=== PATIENT | female | born 1995 | race American Indian/Alaskan Native ===

== ENCOUNTER 2016-06-10 20:16 | Outpatient (CLI) | payer MEDICAID ==
[2016-06-10 20:40] VITALS: BP 102/60
[2016-06-10 20:50] LABS: Urine Drugs of Abuse Note Disclamer
[2016-06-10] MEDS ORDERED: LACTATED RINGERS 1,000 ML IV ONE (21:00)
[2016-06-10 21:06] LABS: Bacteria,Urine 2+ /HPF (Negative); Bilirubin,Urine NEG (Negative); Blood,Urine NEG (Negative); Ketones,Urine NEG (Negative); Leukocyte Esterase,Urine TR (Negative); Nitrite,Urine NEG (Negative); Protein,Urine <15 mg/dL mg/dL (Negative); RBC,Urine < 1.0 /HPF (0.0-6.0); Urobilinogen,Urine < 2.0 mg/dL (<2.0)
[2016-06-10] MEDS ORDERED: BRETHINE SUB-Q ONE (22:00)
--- NOTE | 2016-06-11 12:40 | Ultrasound Report ---
Gestation: Single Position: Cephalic Amniotic Fluid: GELY = 11.9 cm Placenta: Posterior Placental Grade: 1 Heart Rate: 154 BPM Cervical length: 3.5 cm (Normal > 3 cm) anatomic survey not performed. BPD: 6.9 cm = 27 w 4 d HC: 25.5 cm = 27 w 4d AC: 22.9 cm = 27 w 1 d FL: 5.1 cm = 27 w 3 d HC/AC Ratio: 1.1 Cephalic Index: Estimated Weight: 1077 grams. US Gest. Age = 27 w 3 d EDC: 09/06/16
== END 2016-06-10 22:49 | disposition home or self-care (01) ==
LOC: TRG 20:16
PROVIDERS: ATTEND Obstetrics & Gynecology
DX: O26.893 Other specified pregnancy related conditions, third trimester (principal); R10.9 Unspecified abdominal pain; Z3A.30 30 weeks gestation of pregnancy
CPT/HCPCS: 59025; 76816; 80307; 81001; 96360; 96372; J3105; J7120

== ENCOUNTER 2016-09-01 05:32 | Inpatient (IN) | payer MEDICAID ==
[2016-09-01] MEDS ORDERED: ePHEDrine SULFATE IV PRN ×2 (06:04→08:30)
[2016-09-01] MEDS ORDERED: NARCAN 0.4 MG/1 ML IV PRN (06:04)
[2016-09-01] MEDS ORDERED: BRETHINE IVP PRN (06:04)
[2016-09-01] MEDS ORDERED: BRETHINE SUB-Q PRN (06:04)
[2016-09-01] MEDS ORDERED: ZOFRAN IV PRN ×2 (06:04→17:52)
[2016-09-01] MEDS ORDERED: STADOL IV PRN (06:04)
[2016-09-01] MEDS ORDERED: MINERAL OIL PO PRN (06:04)
[2016-09-01] MEDS ORDERED: XYLOCAINE 2% INFILTRATI ONE ×2 (06:04→15:27)
[2016-09-01] MEDS ORDERED: SUBLIMAZE IV PRN (06:04)
[2016-09-01] MEDS ORDERED: POLYCILLIN/NS 2 GM/100 ML 2 GM/100 ML BAG IV ONE (06:04)
[2016-09-01 06:38] LABS: Hematocrit 27.5 % (30.3-42.9); Mean Corpuscular HGB Conc 33 % (30-34); Mean Corpuscular Hemoglobin 28 pg (28-32); Mean Corpuscular Volume 85 fl (79-97); Platelet Count 152 K/mm3 (140-440); Red Blood Count 3.22 M/mm3 (3.65-5.03); Red Cell Distribution Width 15.2 % (13.2-15.2); White Blood Count 7.2 K/mm3 (4.5-11.0)
[2016-09-01] MEDS: LACTATED RINGERS 1,000 ML IV SCH ×4 (06:50→11:01)
[2016-09-01] MEDS ORDERED: PITOCin/NS 20 UNIT/1000ML DRIP 20 UNITS/1,000 ML BAG IV SCH ×2 (07:00→17:52)
[2016-09-01] MEDS ORDERED: fentaNYL-BUPIV 2 MCG/ML-0.125% 200 MCG/100 ML BAG EPIDURAL ONE (07:41)
[2016-09-01] MEDS ORDERED: ePHEDrine SULFATE ONE (07:42)
[2016-09-01] MEDS: PITOCin/NS 30 UNIT/500ML 30 UNITS/500 ML BAG IV SCH ×2 (08:15→09:44)
--- NOTE | 2016-09-01 08:19 | Anesthesia Consultation ---
Anesthesia Consult and Med Hx Date of service: 09/01/16 - Airway Anesthetic Teeth Evaluation: Good ROM Head & Neck: Adequate Mental/Hyoid Distance: Adequate Mallampati Class: Class II Intubation Access Assessment: Probably Good - Pre-Operative Health Status ASA Pre-Surgery Classification: ASA2 Proposed Anesthetic Plan: Epidural, Spinal - Pulmonary Hx Asthma: No COPD: No Hx Pneumonia: No - Cardiovascular System Hx Hypertension: No - Central Nervous System Hx Seizures: No Hx Psychiatric Problems: No - Endocrine Hx Renal Disease: No Hx End Stage Renal Disease: No Hx Hypothyroidism: No Hx Hyperthyroidism: No - Hematic Hx Anemia: Yes Hx Sickle Cell Disease: No - Other Systems Hx Alcohol Use: No
[2016-09-01] MEDS ORDERED: NARCAN 2 MG/2 ML IV PRN (08:30)
[2016-09-01] MEDS ORDERED: fentaNYL-BUPIV 2 MCG/ML-0.125% 200 MCG/100 ML BAG EPIDURAL SCH (08:30)
[2016-09-01] MEDS ORDERED: XYLOCAINE MPF 2% ONE (08:41)
--- NOTE | 2016-09-01 08:53 | History and Physical Report ---
History of Present Illness Date of examination: 09/01/16 Date of admission: 09/01/16 06:13 Chief complaint: My water broke History of present illness: Pt is a 21 year old -[place] female primigravida ROBB 09/06/16 at 39w2d who presents with leakage of fluid since 4 am this morning. She reports rare contractions, and denies vaginal bleeding. She has had limited care at [facility] since 29 wks complicated by late entry to care, insufficient care, anemia on iron supplementation, and genital herpes without lesion or prodrome. She is GBS negative. 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 Family/Genetic History: none Social history: no significant social history - Obstetrical History Expected Date of Delivery: 09/06/16 Actual Gestation: 39 Week(s) 2 Day(s) : 1 Medications and Allergies Allergies Allergy/AdvReac Type Severity Reaction Status Date / Time No Known Allergies Allergy Verified 06/10/16 20:24 Home Medications Medication Instructions Recorded Confirmed Last Taken Type Ferrous Sulfate [Feosol] 325 mg PO QDAY 09/01/16 09/01/16 08/31/16 History Vit-Fe Fumar-FA [ 1 tab PO QDAY 09/01/16 09/01/16 08/31/16 History Vitamin] Active Meds: Active Medications Butorphanol Tartrate (Stadol) 2 mg IV Q2H PRN PRN Reason: Pain , Severe (7-10) Last Admin: 09/01/16 06:51 Dose: 2 mg Ephedrine Sulfate (Ephedrine Sulfate) 10 mg IV Q2M PRN PRN Reason: Hypotension Stop: 09/01/16 14:00 Fentanyl (Sublimaze) 100 mcg IV Q2H PRN PRN Reason: Labor Pain Lactated Ringer's (Lactated Ringers) 1,000 mls @ 125 mls/hr IV DIRECT ABRAHAM Last Admin: 09/01/16 07:49 Dose: 125 mls/hr Oxytocin/Sodium Chloride (Pitocin/Ns 20 Unit/1000ml Drip) 20 units in 1,000 mls @ 125 mls/hr IV DIRECT ABRAHAM Oxytocin/Sodium Chloride (Pitocin/Ns 30 Unit/500ml) 30 units in 500 mls @ 4 mls /hr IV TITR ABRAHAM PRN Reason: Protocol Last Admin: 09/01/16 08:15 Dose: 4 ml/hr, 4 mls/hr Fentanyl/Bupivacaine/Sodium Chlor (Fentanyl-Bupiv 2 Mcg/Ml-0.125%) 200 mcg in 100 mls @ 12 mls/hr EPIDURAL TITR ABRAHAM PRN Reason: Protocol Last Admin: 09/01/16 08:30 Dose: 12 mls/hr Mineral Oil (Mineral Oil) 30 ml PO QHS PRN PRN Reason: Constipation Naloxone HCl (Narcan 0.4 Mg/1 Ml) 0.1 mg IV Q2MIN PRN PRN Reason: Res Rate </= 8 or 02 SAT < 92% Naloxone HCl (Narcan 2 Mg/2 Ml) 0.2 mg IV Q5M PRN PRN Reason: Respiratory sedation Stop: 09/01/16 12:30 Ondansetron HCl (Zofran) 4 mg IV Q8H PRN PRN Reason: Nausea And Vomiting Review of Systems All systems: negative - Vital Signs Vital signs: Vital Signs Pulse BP Pulse Ox 93 H 122/74 99 09/01/16 05:39 09/01/16 05:39 09/01/16 05:39 Temp Pulse Resp BP Pulse Ox 97.7 F 73 14 107/74 100 09/01/16 05:42 09/01/16 08:45 09/01/16 06:51 09/01/16 08:43 09/01/16 08:45 - Physical Exam Breasts: Positive: deferred Cardiovascular: Regular rate Lungs: Positive: Clear to auscultation Abdomen: Positive: soft (gravid ) Genitourinary (Female): Positive: normal external genitalia Uterus: Positive: enlarged (gravid ) Extremities: Positive: normal - Obstetrical FHR: category 2 Uterine Contraction Monitor Mode: External (3) Cervical Dilatation: 3 Cervical Effacement Percentage: 90 station: -3 Uterine Contraction Pattern: Regular Uterine Tone Measurement Phase: Resting Uterine Contraction Intensity: Moderate Results Result Diagrams: 09/01/16 06:10 Abnormal lab results 09/01/16 Range/Units 06:10 RBC 3.22 L (3.65-5.03) M/mm3 Hgb 9.0 L (10.1-14.3) gm/dl Hct 27.5 L (30.3-42.9) % All other labs normal. Assessment and Plan A: IUP at 39w2d PROM Genital herpes- no lesion or prodrome GBS negative Insufficient care P: Admit to labor and delivery. Pitocin augmentation. Closely monitor maternal and status.
[2016-09-01] MEDS ORDERED: POLYCILLIN/NS 1 GM/50 ML 1 GM/50 ML BAG IV SCH (10:06)
--- NOTE | 2016-09-01 13:27 | Event Note ---
Date: 09/01/16 Pt complaining of increased vaginal pressure. Category II tracing. Cervix / . Continue routine intrapartum care.
--- NOTE | 2016-09-01 15:57 | Procedure Note ---
OB Delivery Note - Delivery Date of Delivery: 09/01/16 Surgeon: JESSICA CROUCH Estimated blood loss: other (400 mL) - Vaginal Delivery presentation: vertex Delivery position: OA Intrapartum events: meconium, decreased FHT variability Delivery induction: none Delivery augmentation: pitocin Delivery monitor: external FHT, external uterine Route of delivery: Delivery placenta: spontaneous Delivery cord: 3 umbilical vessels Episiotomy: none Delivery laceration: 1st degree, other (bilateral periurethral lacerations ) Delivery repair: vicryl Anesthesia: local, epidural Delivery comments: Pt progressed to complete/complete/+3 and pushed to deliver a viable female over intact perineum via under epidural anesthesia. Head delivered in PEACE position, followed by shoulders and body. placed on maternal abdomen and bulb suctioned. Cord clamped and cut and handed to RN in attendance. Placenta delivered spontaneously (3VC, intact). Vagina and perineum explored. First degree perineal laceration repaired with 2-0 Vicryl in a figure- of-eight fashion. Bilateral periurethrals noted. Right periurethral laceration hemostatic without repair. Left periurethral laceration is repaired with 3-0 Vicryl in a running locked fashion. EBL 400 mL. - Infant A at 1 minute: 8 at 5 minutes: 9 Infant Gender: Female (3928g (8 lb 11 oz))
[2016-09-01] MEDS ORDERED: SODIUM CHLORIDE FLUSH SYRINGE 10 ML IV NR (17:52)
[2016-09-01] MEDS ORDERED: PHENERGAN PO PRN (17:52)
[2016-09-01] MEDS ORDERED: PHENERGAN PR PRN (17:52)
[2016-09-01] MEDS ORDERED: NORCO 5/325 PO PRN (17:52)
[2016-09-01] MEDS ORDERED: TUCKS PAD TP PRN (17:52)
[2016-09-01] MEDS ORDERED: DULCOLAX PR PRN (17:52)
[2016-09-01] MEDS ORDERED: MILK OF MAGNESIA PO PRN (17:52)
[2016-09-01] MEDS ORDERED: BENADRYL PO PRN (17:52)
[2016-09-01] MEDS ORDERED: TYLENOL PO PRN (17:52)
[2016-09-01] MEDS ORDERED: LANSINOH TP PRN (17:52)
[2016-09-01] MEDS: MOTRIN PO SCH (19:51)
[2016-09-01] MEDS: FEOSOL PO SCH (23:56)
[2016-09-02] MEDS: MOTRIN PO SCH ×3 (01:55→18:31)
[2016-09-02 06:38] LABS: Hematocrit 24.7 % (30.3-42.9); Hemoglobin 8.3 gm/dl (10.1-14.3)
--- NOTE | 2016-09-02 08:06 | Progress Note ---
Assessment and Plan A: PPD#1 s/p at ter; Asymptomatic anemia P: Routine care. Anticipate discharge tomorrow. Subjective - Subjective Date of service: 09/02/16 Principal diagnosis: s/p at term Interval history: No overnight events. with poor suck. Eating minimally. Patient reports: appetite normal, voiding normally, pain well controlled, ambulating normally [place]alt: bottle feeding (poor suck ) Objective - Vital Signs Latest vital signs: Vital Signs Temp Pulse Pulse Resp BP BP Pulse Ox 09/02/16 00:00 98.5 F 20 103/62 09/01/16 20:00 98.8 F 97 H 20 110/64 09/01/16 18:20 98.8 F 100 H 20 102/67 09/01/16 17:05 106 H 114/74 09/01/16 16:59 90 130/67 09/01/16 16:44 106 H 122/58 09/01/16 16:30 115 H 123/69 09/01/16 15:59 120 H 127/60 09/01/16 15:56 113 H 147/67 09/01/16 15:29 110 H 119/76 09/01/16 15:15 122 H 107/71 09/01/16 14:59 117 H 119/58 09/01/16 14:45 169 H 200/74 09/01/16 14:30 114 H 98 09/01/16 14:29 99 H 115/74 09/01/16 14:25 95 H 100 09/01/16 14:20 95 H 99 09/01/16 14:15 105 H 99 09/01/16 14:14 100 H 128/83 09/01/16 14:10 105 H 99 09/01/16 14:06 112 H 94 09/01/16 14:05 103 H 97 09/01/16 14:00 101 H 97 09/01/16 13:59 105 H 119/75 09/01/16 13:57 86 09/01/16 13:55 97 H 99 09/01/16 13:50 99 H 99 09/01/16 13:45 88 122/79 100 09/01/16 13:40 124 H 100 09/01/16 13:35 103 H 99 09/01/16 13:30 116 H 98 09/01/16 13:29 130 H 134/89 09/01/16 13:25 95 H 100 17 13:20 95 H 99 17 13:15 101 H 98 09/01/16 13:14 91 H 124/78 09/01/16 13:10 107 H 98 09/01/16 13:05 98 H 97 09/01/16 13:00 93 H 98 09/01/16 12:59 106 H 118/75 09/01/16 12:55 101 H 98 09/01/16 12:50 104 H 98 09/01/16 12:45 102 H 97 09/01/16 12:44 109 H 108/67 09/01/16 12:40 104 H 98 09/01/16 12:35 101 H 96 09/01/16 12:30 100 H 98 09/01/16 12:29 95 H 117/77 09/01/16 12:25 96 H 98 09/01/16 12:20 96 H 99 09/01/16 12:15 96 H 99 09/01/16 12:13 103 H 100/68 09/01/16 12:10 97 H 98 09/01/16 12:05 98 H 98 09/01/16 12:01 93 H 118/65 09/01/16 12:00 105 H 99 09/01/16 11:55 98 H 97 09/01/16 11:50 95 H 98 09/01/16 11:45 94 H 98 09/01/16 11:43 95 H 105/64 09/01/16 11:40 92 H 99 09/01/16 11:35 94 H 98 09/01/16 11:30 93 H 99 09/01/16 11:29 85 107/66 09/01/16 11:25 95 H 99 09/01/16 11:20 95 H 97 09/01/16 11:15 97 H 104/64 99 09/01/16 11:10 92 H 99 09/01/16 11:08 93 H 91 09/01/16 11:05 86 99 09/01/16 11:00 86 108/69 99 09/01/16 10:55 94 H 99 09/01/16 10:50 97 H 97 09/01/16 10:45 84 100 09/01/16 10:43 79 107/66 06/15/17 10:40 83 98 06/15/17 10:35 98 H 98 06/15/17 10:30 85 100 06/15/17 10:29 93 H 97/55 06/15/17 10:25 87 98 06/15/17 10:20 90 99 06/15/17 10:15 89 97/52 100 06/15/17 10:10 91 H 100 06/15/17 10:05 85 100 06/15/17 10:00 90 100 15/17 09:59 103 H 88/54 0615/17 09:55 86 100 0615/17 09:50 81 100 06/15/17 09:47 73 107/59 15/17 09:45 87 100 15/17 09:43 89 94/54 15/17 09:40 82 100 0615/17 09:38 80 101/57 15/17 09:35 81 100 15/17 09:33 82 99/57 15/17 09:30 79 100 15/17 09:29 75 101/58 0615/17 09:25 90 100 15/17 09:23 83 105/64 0615/17 09:20 83 100 15/17 09:18 68 111/62 15/17 09:15 64 100 15/17 09:13 96 H 98/60 15/17 09:12 88 93 15/17 09:10 77 99 15/17 09:09 76 95/54 15/17 09:05 76 100 15/17 09:04 84 87/53 15/17 09:00 77 99 15/17 08:59 75 106/62 0615/17 08:55 78 100 0615/17 08:54 73 106/62 15/17 08:50 76 113/56 100 15/17 08:49 79 89 15/17 08:45 73 100 0615/17 08:43 74 107/74 15/17 08:40 71 100 0615/17 08:39 68 118/73 15/17 08:37 88 91 15/17 08:35 72 98 15/17 08:34 72 117/77 09/01/16 08:30 73 100 09/01/16 08:29 84 74 L 09/01/16 08:28 73 110/70 09/01/16 08:25 76 100 09/01/16 08:24 75 104/71 09/01/16 08:20 79 99 09/01/16 08:19 78 110/79 09/01/16 08:18 77 111/68 09/01/16 08:15 78 99 09/01/16 08:14 74 97/67 09/01/16 08:11 70 109/70 09/01/16 08:10 73 100 09/01/16 08:05 78 100 Intake and Output 09/01/16 09/02/16 09/02/16 22:59 06:59 14:59 Intake Total 240 480 Output Total 700 Balance -460 480 Intake: Oral 240 480 Output: Urine 700 Void 700 Other: Total, Intake Amount 240 240 Total, Output Amount 500 # Voids Void 1 Estimated Blood Loss 400 - Exam Breasts: Present: deferred Cardiovascular: Present: Regular rate Lungs: Present: Clear to auscultation Abdomen: Present: soft Uterus: Present: fundal height at umbilicus Extremities: Present: normal - Labs Labs: Abnormal lab results 09/02/16 Range/Units 06:00 Hgb 8.3 L (10.1-14.3) gm/dl Hct 24.7 L (30.3-42.9) %
--- NOTE | 2016-09-02 08:10 | Discharge Summary ---
Providers - Providers Date of Admission: 09/01/16 06:13 Date of discharge: 09/02/16 Attending physician: JESSICA CROUCH 09/01/16 17:52 Consult to Final Expense Agent [CONS] Routine Reason For Exam: assistance with , SNS Primary care physician: JESSICA CROUCH Hospitalization Reason for admission: rupture of membranes Delivery: Procedure details: Please see delivery note. Episiotomy: none Laceration: 1st degree, other (bilateral periurethrals ) Other procedures: none complications: none Discharge diagnosis: IUP at term delivered baby: female Hospital course: Pt was admitted with PROM and ultimately had a vaginal delivery which she tolerated well. Her course was uncomplicated and she met discharge criteria on PPD#2. Condition at discharge: Stable Disposition: DC-01 TO HOME OR SELFCARE - Discharge Diagnoses (1) Term of female Status: Acute (2) Anemia affecting Status: Acute Qualifiers: Trimester: unspecified trimester Qualified Code(s): O99.019 - Anemia complicating , unspecified trimester (3) Insufficient care in third trimester Status: Acute (4) Spontaneous rupture of membranes Status: Acute Plan - Discharge Medications Prescriptions: Ferrous Sulfate [Feosol 325 MG tab] 325 mg PO BID #60 tablet HYDROcodone/APAP 5-325 [[place] 5/325] 1 each PO Q6HR PRN #30 tablet PRN Reason: Pain Ibuprofen [Motrin] 800 mg PO Q8HR PRN #30 tablet PRN Reason: Pain Vit-Fe Fumar-FA [ Vitamin] 1 tab PO QDAY #30 tablet - Provider Discharge Summary Activity: routine, no sex for 6 weeks, no heavy lifting 4 weeks, no strenuous exercise Diet: routine Instructions: routine Additional instructions: [] Smoking cessation referral if applicable(refer to patient education folder for contact #) [] Refer to [facility] Booklet Call your doctor immediately for: * Fever > 100.5 * Heavy vaginal bleeding ( >1 pad per hour) * Severe persistent headache * Shortness of breath * Reddened, hot, painful area to leg or breast * Drainage or odor from incision. * Keep incision clean and dry at all times and follow doctor's instructions regarding bathing/showering - Follow up plan Follow up: BERTO MEDINA CNM [Advanced Practice Nurse] - 09/29/16 ( exam. please call for appointment. )
--- NOTE | 2016-09-02 08:41 | Progress Note ---
Subjective Date of service: 09/02/16 Principal diagnosis: s/p at term Interval history: Patient seen post delivery day 1; patient is ambulating; had some pain in back during delivery and post- delivery; satisfied with level of anesthesia during delivery. Objective - Constitutional Vitals: Vital Signs - 12hr 09/02/16 00:00 Temperature 98.5 F Respiratory 20 Rate Blood Pressure 103/62 [Left Arm] - Labs CBC & Chem 7: 09/02/16 06:00 Labs: Abnormal lab results 09/02/16 Range/Units 06:00 Hgb 8.3 L (10.1-14.3) gm/dl Hct 24.7 L (30.3-42.9) %
[2016-09-02] MEDS: FEOSOL PO SCH ×2 (12:00→22:36)
[2016-09-02] MEDS: PRENATAL VITAMIN PO SCH (12:15)
[2016-09-02] MEDS ORDERED: M-M-R II VACCINE SUB-Q ONE (16:00)
[2016-09-02] MEDS ORDERED: BOOSTRIX IM ONE (16:00)
[2016-09-03] MEDS: MOTRIN PO SCH ×2 (00:15→05:50)
[2016-09-03 09:15] VITALS: BP 111/82
[2016-09-03] MEDS: PRENATAL VITAMIN PO SCH (10:12)
[2016-09-03] MEDS: FEOSOL PO SCH (10:12)
== END 2016-09-03 16:05 | disposition home or self-care (01) | DRG 774 ==
LOC: TRG 05:32 → LD 06:13 → TRG 06:13 → OB 17:30
PROVIDERS: ADMIT Obstetrics & Gynecology; ATTEND Obstetrics & Gynecology
PROC: 10E0XZZ Delivery of Products of Conception, External Approach (ICD-10-PCS; principal; 2016-09-01)
PROC: 0HQ9XZZ Repair Perineum Skin, External Approach (ICD-10-PCS; 2016-09-01)
PROC: 00HU33Z Insertion of Infusion Device into Spinal Canal, Percutaneous Approach (ICD-10-PCS; 2016-09-01)
PROC: 3E0R3BZ Introduction of Anesthetic Agent into Spinal Canal, Percutaneous Approach (ICD-10-PCS; 2016-09-01)
DX: O77.0 Labor and delivery complicated by meconium in amniotic fluid (principal); O98.32 Other infections with a predominantly sexual mode of transmission complicating childbirth; O99.354 Diseases of the nervous system complicating childbirth; O99.02 Anemia complicating childbirth; D64.9 Anemia, unspecified; A60.00 Herpesviral infection of urogenital system, unspecified; G43.909 Migraine, unspecified, not intractable, without status migrainosus; O42.02 Full-term premature rupture of membranes, onset of labor within 24 hours of rupture; O76 Abnormality in fetal heart rate and rhythm complicating labor and delivery; O70.0 First degree perineal laceration during delivery; O09.33 Supervision of pregnancy with insufficient antenatal care, third trimester; Z3A.39 39 weeks gestation of pregnancy; Z37.0 Single live birth
CPT/HCPCS: 36415; 85014; 85018; 85027; 86850; 86900; 86901; 99211; A6250; G0463; J0595; J2590; J7120

== ENCOUNTER 2018-07-06 11:43 | Emergency (ER) | payer MEDICAID ==
[2018-07-06 12:44] LABS: Hematocrit 27.6 % (30.3-42.9); Hemoglobin 9.1 gm/dl (10.1-14.3); Mean Corpuscular HGB Conc 33 % (30-34); Mean Corpuscular Volume 84 fl (79-97); Platelet Count 194 K/mm3 (140-440); Red Blood Count 3.29 M/mm3 (3.65-5.03); Red Cell Distribution Width 15.4 % (13.2-15.2)
[2018-07-06 13:31] LABS: Bacteria,Urine 2+ /HPF (Negative); Bilirubin,Urine NEG (Negative); Blood,Urine NEG (Negative); Color,Urine Yellow (Yellow); Mucus,Urine FEW /HPF; Protein,Urine <15 mg/dL mg/dL (Negative); Urobilinogen,Urine < 2.0 mg/dL (<2.0)
--- NOTE | 2018-07-06 15:20 | Ultrasound Report ---
OB ULTRASOUND GREATER THAN 14 WEEKS INDICATION: , vaginal bleeding. COMPARISON: None similar during this gestation. TECHNIQUE: Transabdominal grayscale ultrasound with Doppler interrogation. Gestation: Miller Position: Breech Amniotic Fluid: WNL (< 24 weeks, subjective) Placenta: Anterior Placental Grade: I Heart Rate: 147 BPM Cervical length: 3 cm (Normal > 3 cm) NEUROANATOMY VISUALIZED: Choroid Plexus Cisterna Magnum Cerebellum Lateral Ventricle ANATOMY VISUALIZED: Stomach Kidneys Bladder Diaphragm 4 Chamber Heart Heart 3 Vessel Cord SPINE VISUALIZED: Limited spine due to position The following are not demonstrated due to maternal body habitus or lie: Abd. Cord Insert BPD: 4 cm = 18 w 1 d HC: 16.3 cm = 19 w 1 d AC: 13.3 cm = 18 w 6 d FL: 2.8 cm = 18 w 5 d HC/AC Ratio: 1.23 Cephalic Index: 78.4 Estimated Weight: 257 grams LMP: Uncertain US Gest. Age = 18 w 5 d EDC: 12/02/2018 CONCLUSION: Single, viable intrauterine gestation with ultrasound estimated age of 18 weeks and 5 days and EDC of 12/02/2018, currently in breech lie with details, as above. Thank you for the opportunity to participate in this patient's care.
--- NOTE | 2018-07-06 16:05 | Emergency Department Report ---
ED Female HPI - General Chief complaint: Vaginal Bleeding Stated complaint: CRAMPS/BLEEDING 5/8WKS Time Seen by Provider: 07/06/18 15:17 Source: patient Mode of arrival: Ambulatory Limitations: No Limitations - History of Present Illness Initial comments: 23-year-old [place] female, since emergency department complaining of pelvic cramping and vaginal bleeding times one day with a reported history of being L about 10 weeks. She reports no fever, chills, sweats, chest, palpitations, presyncope. She reports no dysuria or hematuria. No nausea, vomiting. No chest pain or palpitations. She denies any trauma. Reports no vaginal discharge, with the exception of the vaginal bleeding. MD Complaint: vaginal discharge Location: suprapubic Radiation: non-radiating Severity: mild Quality: dull Consistency: constant Improves with: none Worsens with: none Are you Now?: Yes Associated Symptoms: vaginal bleeding. denies: loss of appetite, dysuria, hematuria, rash, shortness of breath, syncope, weakness - Related Data Home Medications Medication Instructions Recorded Confirmed Last Taken Ferrous Sulfate [Feosol] 325 mg PO QDAY 09/01/16 09/01/16 08/31/16 Vit-Fe Fumar-FA [ 1 tab PO QDAY 09/01/16 09/01/16 08/31/16 Vitamin] Previous Rx's Medication Instructions Recorded Last Taken Type Ferrous Sulfate [Feosol 325 MG tab] 325 mg PO BID #60 tablet 09/02/16 Unknown Rx HYDROcodone/APAP 5-325 [[place] 1 each PO Q6HR PRN #30 tablet 09/02/16 Unknown Rx 5/325] Ibuprofen [Motrin] 800 mg PO Q8HR PRN #30 tablet 09/02/16 Unknown Rx Vit-Fe Fumar-FA [ 1 tab PO QDAY #30 tablet 09/02/16 Unknown Rx Vitamin] Allergies Allergy/AdvReac Type Severity Reaction Status Date / Time No Known Allergies Allergy Verified 06/10/16 20:24 ED Review of Systems ROS: Stated complaint: CRAMPS/BLEEDING 5/8WKS Other details as noted in HPI Comment: All other systems reviewed and negative Constitutional: denies: chills, fever Eyes: denies: eye pain, eye discharge, vision change ENT: denies: ear pain, throat pain Respiratory: denies: cough, shortness of breath, wheezing Cardiovascular: denies: chest pain, palpitations Endocrine: no symptoms reported Gastrointestinal: denies: abdominal pain, nausea, diarrhea Genitourinary: denies: urgency, dysuria, discharge Musculoskeletal: denies: back pain, joint swelling, arthralgia Skin: denies: rash, lesions Neurological: denies: headache, weakness, paresthesias Psychiatric: denies: anxiety, depression Hematological/Lymphatic: denies: easy bleeding, easy bruising ED Past Medical Hx - Past Medical History Previous Medical History?: No Hx Hypertension: No Hx Congestive Heart Failure: No Hx Diabetes: No Hx Deep Vein Thrombosis: No Hx Renal Disease: No Hx Sickle Cell Disease: No Hx Seizures: No Hx Asthma: No Hx COPD: No Hx HIV: No - Surgical History Past Surgical History?: No - Social History Smoking Status: Never Smoker Substance Use Type: None - Medications Home Medications: Home Medications Medication Instructions Recorded Confirmed Last Taken Type Ferrous Sulfate [Feosol] 325 mg PO QDAY 09/01/16 09/01/16 08/31/16 History Vit-Fe Fumar-FA [ 1 tab PO QDAY 09/01/16 09/01/16 08/31/16 History Vitamin] Ferrous Sulfate [Feosol 325 MG tab] 325 mg PO BID #60 tablet 09/02/16 Unknown Rx HYDROcodone/APAP 5-325 [[place] 1 each PO Q6HR PRN #30 tablet 09/02/16 Unknown Rx 5/325] Ibuprofen [Motrin] 800 mg PO Q8HR PRN #30 tablet 09/02/16 Unknown Rx Vit-Fe Fumar-FA [ 1 tab PO QDAY #30 tablet 09/02/16 Unknown Rx Vitamin] ED Physical Exam - General Limitations: No Limitations General appearance: alert, in no apparent distress - Head Head exam: Present: atraumatic, normocephalic - Eye Eye exam: Present: normal appearance - ENT ENT exam: Present: mucous membranes moist - Neck Neck exam: Present: normal inspection - Respiratory Respiratory exam: Present: normal lung sounds bilaterally. Absent: respiratory distress - Cardiovascular Cardiovascular Exam: Present: regular rate, normal rhythm. Absent: systolic mur mur, diastolic murmur, rubs, gallop - GI/Abdominal GI/Abdominal exam: Present: soft, tenderness (tenderness to the suprapubic region with palpation), normal bowel sounds. Absent: hypoactive bowel sounds, organomegaly - External exam: Present: normal external exam - Extremities Exam Extremities exam: Present: normal inspection - Back Exam Back exam: Present: normal inspection - Neurological Exam Neurological exam: Present: alert, oriented X3 - Psychiatric Psychiatric exam: Present: normal affect, normal mood - Skin Skin exam: Present: warm, dry, intact, normal color. Absent: rash ED Course Vital Signs 07/06/18 11:53 Temperature 98.4 F Pulse Rate 100 H Respiratory 16 Rate Blood Pressure 106/57 O2 Sat by Pulse 100 Oximetry ED Medical Decision Making - Lab Data Result diagrams: 07/06/18 12:28 - Radiology Data Radiology results: report reviewed (ultrasound review shows a fetus 18 weeks 5 days. Heart regular 147 bpm) Critical care attestation.: If time is entered above; I have spent that time in minutes in the direct care of this critically ill patient, excluding procedure time. ED Disposition Clinical Impression: Threatened miscarriage Disposition: DC-01 TO HOME OR SELFCARE Is pt being admited?: No Does the pt Need Aspirin: No Condition: Stable Instructions: Threatened Miscarriage (ED) Referrals: [facility]G FAM MD [Primary Care Provider] - 3-5 Days (Should follow with your SLOT ATTENDANT that she attempted to do today in the next 3-5 days.)
[2018-07-06 16:37] VITALS: BP 100/64
== END 2018-07-06 16:37 | disposition home or self-care (01) ==
LOC: ED 11:43
DX: O20.0 Threatened abortion (principal); Z3A.18 18 weeks gestation of pregnancy
CPT/HCPCS: 36415; 76805; 81001; 84702; 85027; 99284

== ENCOUNTER 2018-11-21 10:23 | Inpatient (IN) | payer MEDICAID ==
[2018-11-21] MEDS ORDERED: SUBLIMAZE IV PRN (11:29)
[2018-11-21] MEDS ORDERED: STADOL IV PRN (11:29)
[2018-11-21] MEDS ORDERED: XYLOCAINE 2% INFILTRATI ONE (11:29)
[2018-11-21] MEDS ORDERED: PHENERGAN PO PRN ×2 (11:29→15:31)
[2018-11-21] MEDS ORDERED: BRETHINE IVP PRN (11:29)
[2018-11-21] MEDS ORDERED: MINERAL OIL PO PRN (11:29)
[2018-11-21] MEDS ORDERED: ZOFRAN IV PRN ×2 (11:29→15:31)
[2018-11-21] MEDS ORDERED: BRETHINE SUB-Q PRN (11:29)
[2018-11-21] MEDS ORDERED: NARCAN 0.4 MG/1 ML IV PRN (11:29)
[2018-11-21] MEDS ORDERED: AMPICILLIN/NS 2 GM/100 ML 2 GM/100 ML BAG IV ONE ×2 (11:35→13:30)
[2018-11-21] MEDS ORDERED: SUBLIMAZE IV ONE (12:00)
[2018-11-21] MEDS ORDERED: PITOCin/NS 30 UNIT/500ML 30 UNITS/500 ML BAG IV SCH (12:00)
[2018-11-21] MEDS ORDERED: PITOCin/NS 20 UNIT/1000ML DRIP 20 UNITS/1,000 ML BAG IV SCH (12:00)
[2018-11-21] MEDS ORDERED: LACTATED RINGERS 1,000 ML IV SCH (12:00)
--- NOTE | 2018-11-21 12:37 | History and Physical Report ---
History of Present Illness Date of examination: 11/21/18 Date of admission: 11/21/18 Chief complaint: Active labor History of present illness: The patient is a 23yo at 37.4 wks EGA who presents with regular uterine contractions. She reports positive movement and leakage of mucus, denies vaginal bleeding. She has received care with [facility] since 29.5 weeks EGA. She has been inconsistent in presenting for visits. Her has been complicated by late care, anemia, and arrhythmia that resolved. 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 She has a history of depression. Past History Past Medical History: other (anemia, depression) Past Surgical History: no surgical history [employer]NA[employer]ATIONS History: herpes (seropositive, no hx outbreak) Social history: no significant social history - Obstetrical History Expected Date of Delivery: 12/08/18 Actual Gestation: 37 Week(s) 4 Day(s) : 4 Para: 1 Spontaneous Abortions: 2 Number of Living Children: 1 Medications and Allergies Allergies Allergy/AdvReac Type Severity Reaction Status Date / Time No Known Allergies Allergy Verified 06/10/16 20:24 Home Medications Medication Instructions Recorded Confirmed Last Taken Type Ferrous Sulfate [Feosol] 325 mg PO QDAY 09/01/16 09/01/16 08/31/16 History Vit-Fe Fumar-FA [ 1 tab PO QDAY 09/01/16 09/01/16 08/31/16 History Vitamin] Ferrous Sulfate [Feosol 325 MG tab] 325 mg PO BID #60 tablet 09/02/16 Unknown Rx HYDROcodone/APAP 5-325 [[place] 1 each PO Q6HR PRN #30 tablet 09/02/16 Unknown Rx 5/325] Ibuprofen [Motrin] 800 mg PO Q8HR PRN #30 tablet 09/02/16 Unknown Rx Vit-Fe Fumar-FA [ 1 tab PO QDAY #30 tablet 09/02/16 Unknown Rx Vitamin] Active Meds: Active Medications Butorphanol Tartrate (Stadol) 2 mg IV Q2H PRN PRN Reason: Pain , Severe (7-10) Ephedrine Sulfate (Ephedrine Sulfate) 10 mg IV Q2M PRN PRN Reason: Hypotension Fentanyl (Sublimaze) 100 mcg IV Q2H PRN PRN Reason: Labor Pain Oxytocin/Sodium Chloride (Pitocin/Ns 20 Unit/1000ml Drip) 20 units in 1,000 mls @ 125 mls/hr IV DIRECT ABRAHAM Oxytocin/Sodium Chloride (Pitocin/Ns 30 Unit/500ml) 30 units in 500 mls @ 1 mls/hr IV TITR ABRAHAM; Protocol Lactated Ringer's (Lactated Ringers) 1,000 mls @ 125 mls/hr IV DIRECT ABRAHAM Ampicillin Sodium (Ampicillin/Ns 2 Gm/100 Ml) 2 gm in 100 mls @ 100 mls/hr IV ONCE ONE; Protocol Stop: 11/21/18 12:34 Ampicillin Sodium (Ampicillin/Ns 1 Gm/50 Ml) 1 gm in 50 mls @ 100 mls/hr IV Q4HR ABRAHAM; Protocol Mineral Oil (Mineral Oil) 30 ml PO QHS PRN PRN Reason: Constipation Naloxone HCl (Narcan 0.4 Mg/1 Ml) 0.1 mg IV Q2MIN PRN PRN Reason: Res Rate </= 8 or 02 SAT < 92% Ondansetron HCl (Zofran) 4 mg IV Q8H PRN PRN Reason: Nausea And Vomiting Promethazine HCl (Phenergan) 25 mg PO Q6H PRN PRN Reason: Nausea And Vomiting Terbutaline Sulfate (Brethine) 0.25 mg SUB-Q ONCE PRN PRN Reason: Hyperstimulation/Hypertonicity Terbutaline Sulfate (Brethine) 0.25 mg IVP ONCE PRN PRN Reason: Hyperstimulation/Hypertonicity Review of Systems All systems: negative Cardiovascular: no chest pain Respiratory: no shortness of breath Genitourinary: vaginal discharge (thin mucus), contractions, no vaginal bleeding - Vital Signs Vital signs: Vital Signs Pulse Pulse Ox 95 H 99 11/21/18 10:29 11/21/18 10:29 Temp Pulse Resp BP Pulse Ox 83 111/70 90 11/21/18 12:32 11/21/18 12:13 11/21/18 12:32 - Physical Exam Lungs: Positive: Normal air movement Abdomen: Positive: normal appearance, soft Genitourinary (Female): Positive: normal external genitalia Vagina: Positive: normal moisture Uterus: Positive: enlarged (gravid), normal contour Extremities: Positive: normal - Obstetrical FHR: category 1 Uterine Contraction Monitor Mode: External Cervical Dilatation: 5 Cervical Effacement Percentage: 90 station: -2 Uterine Contraction Frequency (min): 2-5 Uterine Contraction Duration: 60 Uterine Contraction Pattern: Irregular Results Result Diagrams: 11/21/18 12:21 All other labs normal. 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
[2018-11-21 12:38] LABS: Hematocrit 25.8 % (30.3-42.9); Hemoglobin 8.5 gm/dl (10.1-14.3); Mean Corpuscular HGB Conc 33 % (30-34); Mean Corpuscular Volume 83 fl (79-97); Platelet Count 185 K/mm3 (140-440); Red Blood Count 3.12 M/mm3 (3.65-5.03); Red Cell Distribution Width 15.5 % (13.2-15.2)
[2018-11-21] MEDS ORDERED: PFIZERPEN 5 MIL.UNITS in NACL 0.9% 50 ML IV ONE (12:41)
[2018-11-21] MEDS ORDERED: fentaNYL-BUPIV 2 MCG/ML-0.125% 200 MCG/100 ML BAG EPIDURAL SCH (13:00)
[2018-11-21] MEDS ORDERED: NARCAN 2 MG/2 ML IV PRN (13:00)
--- NOTE | 2018-11-21 13:05 | Anesthesia Consultation ---
Anesthesia Consult and Med Hx Date of service: 11/21/18 - Airway Anesthetic Teeth Evaluation: Good ROM Head & Neck: Adequate Mental/Hyoid Distance: Adequate Mallampati Class: Class II Intubation Access Assessment: Probably Good - Pulmonary Exam CTA: Yes - Cardiac Exam Cardiac Exam: RRR - Pre-Operative Health Status ASA Pre-Surgery Classification: ASA2 Proposed Anesthetic Plan: Epidural - Pulmonary Hx Asthma: No COPD: No Hx Pneumonia: No - Cardiovascular System Hx Hypertension: No - Central Nervous System Hx Seizures: No Hx Psychiatric Problems: No - Endocrine Hx Renal Disease: No Hx End Stage Renal Disease: No Hx Hypothyroidism: No Hx Hyperthyroidism: No - Hematic Hx Anemia: Yes Hx Sickle Cell Disease: No - Other Systems Hx Alcohol Use: No
[2018-11-21] MEDS ORDERED: PFIZERPEN 2.5 MIL.UNITS in NACL 0.9% 50 ML IV SCH (14:00)
[2018-11-21] MEDS ORDERED: MARCAINE 0.25% INFILTRATI ONE (14:20)
[2018-11-21] MEDS ORDERED: AMPICILLIN/NS 1 GM/50 ML 1 GM/50 ML BAG IV SCH ×2 (15:00→17:30)
[2018-11-21] MEDS ORDERED: MILK OF MAGNESIA PO PRN (15:31)
[2018-11-21] MEDS ORDERED: PHENERGAN PR PRN (15:31)
[2018-11-21] MEDS ORDERED: PERCOCET 5/325 PO PRN (15:31)
[2018-11-21] MEDS ORDERED: DULCOLAX PR PRN (15:31)
[2018-11-21] MEDS ORDERED: TYLENOL PO PRN (15:31)
[2018-11-21] MEDS ORDERED: LANSINOH TP PRN (15:31)
[2018-11-21] MEDS ORDERED: BENADRYL PO PRN (15:31)
[2018-11-21] MEDS ORDERED: TUCKS PAD TP PRN (15:31)
--- NOTE | 2018-11-21 15:38 | Procedure Note ---
OB Delivery Note - Delivery Date of Delivery: 11/21/18 Surgeon: CHRISTIE VILLANUEVA (CN) Estimated blood loss: 200cc - Vaginal Delivery presentation: vertex Delivery position: OA Delivery induction: none Delivery augmentation: rupture of membranes Delivery monitor: external FHT Route of delivery: Delivery placenta: spontaneous Delivery cord: nuchal cord, 3 umbilical vessels Episiotomy: none Delivery laceration: none Anesthesia: epidural Delivery comments: Excellent maternal effort resulted in of viable female infant. Head restituted LOT, shoulder followed easily, body somersaulted through nuchal cord x1. Delayed cord clamping. Placenta delivered spontaneously and intact <10 minutes after . - Infant A Gender: Female (8 lb)
[2018-11-21] MEDS ORDERED: SODIUM CHLORIDE FLUSH SYRINGE 10 ML IV SCH (16:00)
[2018-11-21] MEDS: IBUPROFEN PO SCH (21:10)
[2018-11-21] MEDS: COLACE PO SCH (21:11)
[2018-11-21] MEDS: FEOSOL PO SCH (21:11)
[2018-11-22 06:40] LABS: Hemoglobin 8.2 gm/dl (10.1-14.3)
--- NOTE | 2018-11-22 08:33 | Progress Note ---
Assessment and Plan PPD1 s/p Acute on chronic anemia- iron supplementation Vital signs stable Discharge to home tomorrow Subjective - Subjective Date of service: 11/22/18 Principal diagnosis: Interval history: PPD1 s/p Patient reports: appetite normal, voiding normally, pain well controlled, ambulating normally : doing well, nursing well Objective - Vital Signs Latest vital signs: Vital Signs Temp Pulse Resp BP BP Pulse Ox 11/22/18 00:00 98.4 F 74 19 114/79 11/21/18 19:30 98.7 F 74 19 101/72 11/21/18 17:18 97.7 F 86 16 107/69 98 11/21/18 16:19 75 110/67 11/21/18 16:05 81 119/53 11/21/18 15:40 83 100 11/21/18 15:38 103 H 93 11/21/18 15:35 92 H 100 11/21/18 15:33 85 114/55 11/21/18 15:30 103 H 61 L 11/21/18 15:19 83 109/58 11/21/18 15:11 88 100 11/21/18 15:07 112 H 94 11/21/18 15:06 91 H 100 11/21/18 15:04 102 H 119/79 11/21/18 15:01 101 H 100 11/21/18 14:56 85 100 11/21/18 14:51 82 100 11/21/18 14:50 83 123/81 11/21/18 14:46 87 100 11/21/18 14:45 86 123/84 11/21/18 14:41 87 100 11/21/18 14:36 88 100 11/21/18 14:33 91 H 82/55 11/21/18 14:31 95 H 100 11/21/18 14:30 90 100/56 11/21/18 14:27 94 H 99/60 11/21/18 14:26 93 H 100 11/21/18 14:24 90 94/55 11/21/18 14:21 95 H 96/58 100 11/21/18 14:18 92 H 94/57 11/21/18 14:16 89 100 11/21/18 14:15 89 95/53 11/21/18 14:12 87 95/54 11/21/18 14:11 87 100 11/21/18 14:09 99 H 104/57 11/21/18 14:06 90 100/57 100 11/21/18 14:03 85 110/67 11/21/18 14:01 88 100 11/21/18 14:00 85 114/76 11/21/18 13:57 95 H 118/76 11/21/18 13:56 93 H 100 11/21/18 13:54 86 117/76 11/21/18 13:51 83 112/73 100 11/21/18 13:48 87 110/75 11/21/18 13:46 90 100 11/21/18 13:45 88 111/74 11/21/18 13:42 88 109/73 11/21/18 13:41 90 100 11/21/18 13:39 88 105/71 11/21/18 13:36 88 106/71 100 11/21/18 13:33 90 108/72 11/21/18 13:31 92 H 100 11/21/18 13:30 89 106/70 11/21/18 13:27 93 H 106/70 11/21/18 13:26 99 H 85 11/21/18 13:24 90 107/70 11/21/18 13:21 94 H 101/64 100 11/21/18 13:18 88 104/65 11/21/18 13:16 87 100 11/21/18 13:15 90 108/58 11/21/18 13:12 91 H 108/58 11/21/18 13:11 94 H 100 11/21/18 13:09 93 H 109/65 11/21/18 13:08 87 91 11/21/18 13:06 88 106/62 100 11/21/18 13:03 100 H 108/66 11/21/18 13:02 96 H 94 11/21/18 13:01 102 H 100 11/21/18 13:00 88 102/63 11/21/18 12:59 83 104/65 11/21/18 12:57 80 110/74 11/21/18 12:56 91 H 100 11/21/18 12:53 82 104/64 11/21/18 12:51 87 100 11/21/18 12:48 91 H 107/69 11/21/18 12:46 100 H 100 09/04/19 12:45 88 77 L 11/21/18 12:43 93 H 100/58 11/21/18 12:41 91 H 100 11/21/18 12:37 85 94 11/21/18 12:36 92 H 94 11/21/18 12:32 83 90 11/21/18 12:31 82 100 11/21/18 12:26 80 100 11/21/18 12:21 88 100 11/21/18 12:16 96 H 99 11/21/18 12:13 90 111/70 11/21/18 12:11 89 96 11/21/18 12:10 93 H 94 11/21/18 12:06 93 H 96 11/21/18 12:01 90 95 11/21/18 12:00 96 H 85 11/21/18 11:56 81 100 11/21/18 11:51 89 93 11/21/18 11:50 93 H 92 11/21/18 11:46 82 100 11/21/18 11:09 105 H 100 11/21/18 11:04 99 H 100 11/21/18 11:03 97 H 93/54 11/21/18 10:59 98 H 100 11/21/18 10:54 98 H 100 11/21/18 10:49 94 H 100 11/21/18 10:44 88 99 11/21/18 10:39 97 H 100 11/21/18 10:34 98 H 99 11/21/18 10:29 95 H 99 Intake and Output 11/21/18 11/22/18 11/22/18 23:59 07:59 15:59 Intake Total 1580 200 Output Total 2000 Balance -420 200 Intake: Oral 1160 200 Intake, Free Water 420 Output: Urine 2000 Void 2000 Other: Total, Intake Amount 360 200 Total, Output Amount 1100 # Voids Void 2 1 - Exam Breasts: Present: deferred Lungs: Present: Normal air movement Abdomen: Present: normal appearance, soft Uterus: Present: normal, firm, fundal height below umbilicus Extremities: Present: normal - Labs Labs: Abnormal lab results 11/21/18 11/22/18 Range/Units 12:21 05:34 RBC 3.12 L (3.65-5.03) M/mm3 Hgb 8.5 L 8.2 L (10.1-14.3) gm/dl Hct 25.8 L 24.0 L (30.3-42.9) % MCH 27 L (28-32) pg RDW 15.5 H (13.2-15.2) %
--- NOTE | 2018-11-22 08:49 | Discharge Summary ---
Providers - Providers Date of Admission: 11/21/18 12:51 Date of discharge: 11/23/18 Attending physician: BRE CROWE Primary care physician: BRE CROWE Hospitalization Reason for admission: active labor Delivery: Episiotomy: none Laceration: none Other procedures: none complications: none Discharge diagnosis: IUP at term delivered baby: female Hospital course: Pt arrived in active labor. Progressed to of viable female . Acute on chronic anemia. Met discharge criteria on PPD1. Depo-Provera was administered for contraception. Pt plans for Nexplanon. Condition at discharge: Good Disposition: DC-01 TO HOME OR SELFCARE Plan - Discharge Medications Prescriptions: Ferrous Sulfate [Feosol 325 MG tab] 325 mg PO BID #60 tablet Ibuprofen [Motrin] 600 mg PO Q6H PRN #90 tablet PRN Reason: Pain - Provider Discharge Summary Activity: routine, no sex for 6 weeks, no heavy lifting 4 weeks, no strenuous exercise Diet: routine Instructions: routine Additional instructions: [] Smoking cessation referral if applicable(refer to patient education folder for contact #) [] Refer to [facility] Booklet Call your doctor immediately for: * Fever > 100.5 * Heavy vaginal bleeding ( >1 pad per hour) * Severe persistent headache * Shortness of breath * Reddened, hot, painful area to leg or breast * Drainage or odor from incision. * Keep incision clean and dry at all times and follow doctor's instructions regarding bathing/showering - Follow up plan Follow up: BRE CROWE MD [Primary Care Provider] - 6 Weeks (Please call [facility] to schedule appointment.)
[2018-11-22] MEDS ORDERED: DEPO-PROVERA (CONTRACEPTION) IM NR (09:00)
[2018-11-22] MEDS: PRENATAL VITAMIN PO SCH (10:45)
[2018-11-22] MEDS: COLACE PO SCH ×2 (10:45→22:28)
[2018-11-22] MEDS: FEOSOL PO SCH ×2 (10:45→22:28)
[2018-11-22] MEDS: IBUPROFEN PO SCH ×4 (10:45→23:45)
[2018-11-22] MEDS ORDERED: M-M-R II VACCINE SUB-Q ONE (15:31)
[2018-11-23] MEDS: IBUPROFEN PO SCH ×2 (06:20→13:48)
[2018-11-23 09:22] VITALS: BP 101/61
[2018-11-23] MEDS: PRENATAL VITAMIN PO SCH (09:30)
[2018-11-23] MEDS: COLACE PO SCH (09:30)
[2018-11-23] MEDS: FEOSOL PO SCH (09:30)
[2018-11-23] MEDS ORDERED: M-M-R II VACCINE SUB-Q ONE (15:30)
== END 2018-11-23 16:53 | disposition home or self-care (01) | DRG 774 ==
LOC: TRG 10:23 → LD 10:25 → TRG 12:49 → LD 12:51 → OB 17:43
PROVIDERS: ADMIT Obstetrics & Gynecology; ATTEND Obstetrics & Gynecology
PROC: 10E0XZZ Delivery of Products of Conception, External Approach (ICD-10-PCS; principal; 2018-11-21)
PROC: 3E0R3BZ Introduction of Anesthetic Agent into Spinal Canal, Percutaneous Approach (ICD-10-PCS; 2018-11-21)
PROC: 00HU33Z Insertion of Infusion Device into Spinal Canal, Percutaneous Approach (ICD-10-PCS; 2018-11-21)
PROC: 3E0234Z Introduction of Serum, Toxoid and Vaccine into Muscle, Percutaneous Approach (ICD-10-PCS; 2018-11-22)
DX: O69.81X0 Labor and delivery complicated by cord around neck, without compression, not applicable or unspecified (principal); O98.52 Other viral diseases complicating childbirth; D64.9 Anemia, unspecified; O99.02 Anemia complicating childbirth; B00.9 Herpesviral infection, unspecified; O76 Abnormality in fetal heart rate and rhythm complicating labor and delivery; Z3A.37 37 weeks gestation of pregnancy; Z37.0 Single live birth; Z79.899 Other long term (current) drug therapy; Z23 Encounter for immunization
CPT/HCPCS: 36415; 85014; 85018; 85027; 86592; 86762; 86850; 86900; 86901; 90707; G0378; A6250; J0290; J2590; J3010; J7120